=== PATIENT | female | born 2000 | race Two or more races ===

== ENCOUNTER 2024-04-23 12:42 | Emergency (ER) | payer MEDICAID ==
[~2024-04-23] VITALS: Ht 167.6 cm; Wt 100.2 kg
[2024-04-23 13:12] LABS: Urine Bacteria None Seen /hpf (None Seen)
[2024-04-23 13:51] LABS: Basophils # (auto) 0.1 10 ^3/uL (0-0.2); Basophils % (auto) 0.5 % (0.0-2.0); Eosinophils # (auto) 0.1 10 ^3/uL (0-0.8); Eosinophils % (auto) 0.5 % (0.0-7.0); Hematocrit 45.8 % (36.0-46.0); Hemoglobin 15.9 g/dL (12.2-16.2); Lymphocytes % (auto) 15.4 % (10.0-50.0); Mean Corpuscular Hemoglobin 30.7 pg (28.0-32.0); Mean Corpuscular Hgb Conc. 34.7 g/dL (32.0-36.0); Mean Corpuscular Volume 88.5 fL (80.0-100.0); Monocytes # (auto) 0.7 10 ^3/uL (0-1.3); Monocytes % (auto) 5.5 % (0.0-12.0); Neutrophils # (auto) 9.9 10 ^3/uL (1.6-8.6); Neutrophils % (auto) 78.1 % (37.0-80.0); Nucleated Red Blood Cells % 0.1 %; Platelet Count (auto) 323 10^3/uL (140-450); Red Blood Cells 5.18 10^6/uL (4.0-5.20); Red Cell Distribution Width 13.1 % (11.8-14.3); White Blood Cell 12.7 10^3/uL (4.4-10.8)
--- NOTE | 2024-04-23 13:56 | DVH ---
EXAM: US GALLBLADDER CLINICAL HISTORY: RO EDWAR TECHNIQUE: Grayscale and limited color flow doppler ultrasound of the right upper quadrant is perfor med. COMPARISON: None Findings: Liver measures 16.9 cm in length with increased echotexture and contour. No evidence of focal hepatic lesions or intra- or extrahepatic ductal dilatation. Common bile duct measures 0.6 cm in diameter. N ormal hepatopedal flow noted within the portal vein. No perihepatic free fluid is noted. Gallbladder appears within normal limits with gallbladder wall thickness measuring 0.3 cm. No evidenc e of shadowing calculi, biliary sludge or pericholecystic fluid. Negative sonographic Renee's sign. Pancreas only partially visualized due to overlying bowel gas but is otherwise unremarkable. Right kidney measures 11.3 cm with normal contours, echotexture and cortical thickness. No evidence o f hydronephrosis, calculi, cystic or solid renal lesions. Partially visualized inferior vena cava unremarkable. Impression: 1. No evidence of acute right upper quadrant abnormalities. 2. Hepatic steatosis with borderline hepatomegaly. 3. The common bile duct measures within the upper limits of normal for size.
[2024-04-23 14:15] LABS: Urine Blood Negative /uL (Negative); Urine Clarity Clear (Clear); Urine Color Light-Yellow (Yellow); Urine Protein, UAD Negative (Negative); Urine Specific Gravity 1.015 (1.001-1.035); Urine Squamous Epithelial Cell FEW /hpf (<5); Urine Urobilinogen Normal (Negative); Urine WBC 5 /HPF (0-5); Urine pH 7.5 (5.0-9.0)
[2024-04-23 14:18] LABS: Alkaline Phosphatase 59 U/L (46-116); Anion Gap 9 (5-15); BUN/Creatinine Ratio 9.6 (10.0-20.0); Calcium 10.3 mg/dL (8.7-10.4); Carbon Dioxide 28 mmol/L (20-31); Chloride 103 mmol/L (98-107); Potassium 3.8 mmol/L (3.5-5.1); Sodium 140 mmol/L (136-145); Total Protein 7.7 g/dL (5.7-8.2)
[2024-04-23 14:20] LABS: Alanine Aminotransferase 176 U/L (7-40); Albumin 5.1 g/dL (3.2-4.8); Aspartate Aminotransferase 89 U/L (13-40); Bilirubin, Total 1.5 mg/dL (0.2-1.0); Blood Urea Nitrogen 7 mg/dL (9-23); Glucose 107 mg/dL (74-106); Lipase 55 U/L (12-53)
[2024-04-23 14:27] VITALS: BP 119/74; TEMP 98.7
[2024-04-23] MEDS: SODIUM CHLORIDE 0.9% 1,000 ML IV ONE (14:31)
--- NOTE | 2024-04-23 14:50 | ED.PDOC ---
GI ASSESSMENT HPI Comments 23-year-old female with no reported PMHx presents with a chief complaint of abdominal pain, nausea, vomiting x 1 week. Patient states that her abdomen pain is localized to her epigastric region, nonradiating, describes as dull/ache feeling, and is present with nausea. Patient mentions that she has been feeling nausea and having episodes of vomiting after everything she eats for the past 1 week. Patient denies any blood in her emesis or any diarrhea. Patient denies injuries or trauma prior to onset of symptoms. No other symptoms or modifying factors present at this time. Chief Complaint: Nausea/Vomiting Time Seen by MD: 13:05 Primary Care Provider: TYRONE Luna Notes: Medications, Allergies Allergies: Coded Allergies: NO KNOWN ALLERGIES (Unverified , 04/23/24) Information Source: Patient Mode of Arrival: Ambulatory Timing: Days Duration: Since onset Prehospital treatment: None Quality: Aching Vomitus: Food Particles Stool: Normal Severity: Moderate Recent: None Recent Hx of: None Pain Location: Epigastric Modifying Factors: Food Associated sign and symptoms: Nausea, Vomiting, Abdominal Pain Past Medical History PAST MEDICAL HISTORY: Denies Surgical History: Denies all surgeries MUSEUM SERVICE SCHEDULER History: Denies all MUSEUM SERVICE SCHEDULER Hx Family History Family History: Reviewed,noncontributory to illness Social History Smoker: Non-Smoker Alcohol: Denies ETOH Use Drugs: Denies Drug Use Lives In: Home Constitutional: denies: chills, diaphoresis, fatigue, fever, malaise, sweats, weakness, others EENTM: denies: blurred vision, double vision, ear bleeding, ear discharge, ear drainage, ear pain, ear ringing, eye pain, eye redness, hearing loss, mouth pain, mouth swelling, nasal discharge, nose bleeding, nose congestion, nose pain, photophobia, tearing, throat pain, throat swelling, voice changes, others Respiratory: denies: cough, hemoptysis, orthopnea, SOB at rest, shortness of breath, SOB with excertion, stridor, wheezing, others Cardiovascular: denies: chest pain, dizzy spells, diaphoresis, Dyspnea on exertion, edema, irregular heart beat, left arm pain, lightheadedness, palpitations, PND, syncope, others Gastrointestinal: reports: abdominal pain, nausea, vomiting; denies: abdomen distended, blood streaked bowels, constipated, diarrhea, dysphagia, difficulty swallowing, hematemesis, melena, poor appetite, poor fluid intake, rectal bleedi ng, rectal pain, others Genitourinary: denies: abnormal vagina bleeding, burning, dyspareunia, dysuria, flank pain, frequency, hematuria, incontinence, pain, , vagina discharge, urgency, others Neurological: denies: dizziness, fainting, headache, left sided numbness, left sided weakness, numbness, paresthesia, pre-existing deficit, right sided numbness, right sided weakness, seizure, speech problems, tingling, tremors, weakness, others Musculoskeletal: denies: back pain, gout, joint pain, joint swelling, muscle pain, muscle stiffness, neck pain, others Integumetry: denies: bruises, change in color, change in hair/nails, dryness, laceration, lesions, lumps, rash, wounds, others Allergic/Immunocompromised: denies: Difficulty Healing, Frequent Infections, Hives, Itching, others Hematologic/Lymphatic: denies: anemia, blood clots, easy bleeding, easy bruising, swollen glands, others Endocrine: denies: excessive hunger, excessive sweating, excessive thirst, excessive urination, flushing, intolerance to cold, intolerance to heat, unexplained weight gain, unexplained weight loss, others Psychiatric: denies: anxiety, bipolar disorder, depression, hopeless, panic disorder, schizophrenia, sleepless, suicidal, others All Other Systems: Reviewed and Negative Physical Exam General Appearance: No Apparent Distress, Normal HEENT: Normal ENT Inspection, Pharynx Normal, TMs Normal Neck: Full Range of Motion, Non-Tender, Normal, Normal Inspection Respiratory: Chest Non-Tender, Lungs Clear, No Accessory Muscle Use, No Respiratory Distress, Normal Breath Sounds Cardiovascular: No Edema, No JVD, No Murmur, No Gallop, Normal Peripheral Pulses, Regular Rate/Rhythm Breast Exam: Deferred Gastrointestinal: Epigastric, No Organomegaly, No Pulsatile Mass, Normal Bowel Sounds, Soft, Tenderness Genitalia: Deferred Pelvic: Deferred Rectal: Deferred Extremities: No calf tenderness, Normal capillary refill, Normal inspection, Normal range of motion, Non-tender, No pedal edema Musculoskeletal : Apperance: Normal Neurologic: Alert, housekeeping laundry worker II-XII nml as Tested, No Motor Deficits, Normal Affect, Normal Mood, No Sensory Deficits Cerebellar Function: Normal Reflexes: Normal Skin: Dry, Normal Color, Warm Lymphatic: No Adenopathy Was a procedure done? Was a procedure done?: No GI differential Dx Differential Diagnosis: Bowel Obstruction, Cholangitis, Cholecystitis, Constipation, Diverticular disease, Gastritis/PUD, Gastroenteritis, Pancreatitis, UTI, Dehydration, Electrolyte Imbalance, Viral X-Ray, Labs, Meds, VS Vital Signs Date Time Temp Pulse Resp B/P (MAP) Pulse Ox O2 Delivery O2 Flow Rate FiO2 04/23/24 14:27 88 16 97 Room Air 04/23/24 14:27 98.7 88 16 119/74 (89) 97 98.7 04/23/24 13:02 99.1 100 16 122/77 (92) 96 Lab Test 04/23/24 13:40 04/23/24 13:00 Range/Units White Blood Count 12.7 H 4.4-10.8 10^3/uL Red Blood Count 5.18 4.0-5.20 10^6/uL Hemoglobin 15.9 12.2-16.2 g/dL Hematocrit 45.8 36.0-46.0 % Mean Corpuscular Volume 88.5 80.0-100.0 fL Mean Corpuscular Hemoglobin 30.7 28.0-32.0 pg Mean Corpuscular Hemoglobin Concent 34.7 32.0-36.0 g/dL Red Cell Distribution Width 13.1 11.8-14.3 % Platelet Count 323 140-450 10^3/uL Mean Platelet Volume 8.7 6.9-10.8 fL Neutrophils (%) (Auto) 78.1 37.0-80.0 % Lymphocytes (%) (Auto) 15.4 10.0-50.0 % Monocytes (%) (Auto) 5.5 0.0-12.0 % Eosinophils (%) (Auto) 0.5 0.0-7.0 % Basophils (%) (Auto) 0.5 0.0-2.0 % Neutrophils # (Auto) 9.9 H 1.6-8.6 10 ^3/uL Lymphocytes # (Auto) 2.0 0.4-5.4 10 ^3/uL Monocytes # (Auto) 0.7 0-1.3 10 ^3/uL Eosinophils # (Auto) 0.1 0-0.8 10 ^3/uL Basophils # (Auto) 0.1 0-0.2 10 ^3/uL Nucleated Red Blood Cells 0.1 % Sodium Level 140 136-145 mmol/L Potassium Level 3.8 3.5-5.1 mmol/L Chloride Level 103 98-107 mmol/L Carbon Dioxide Level 28 20-31 mmol/L Anion Gap 9 5-15 Blood Urea Nitrogen 7 L 9-23 mg/dL Creatinine 0.73 0.550-1.02 mg/dL Glomerular Filtration Rate Calc 120 >90 mL/min BUN/Creatinine Ratio 9.6 L 10.0-20.0 Serum Glucose 107 H 74-106 mg/dL Calcium Level 10.3 8.7-10.4 mg/dL Total Bilirubin 1.5 H 0.2-1.0 mg/dL Aspartate Amino Transferase (AST) 89 H 13-40 U/L Alanine Aminotransferase (ALT) 176 H 7-40 U/L Alkaline Phosphatase 59 46-116 U/L Total Protein 7.7 5.7-8.2 g/dL Albumin 5.1 H 3.2-4.8 g/dL Lipase 55 H 12-53 U/L Urine Color Light-yellow Yellow Urine Clarity Clear Clear Urine pH 7.5 5.0-9.0 Urine Specific Sterling 1.015 1.001-1.035 Urine Protein Negative Negative Urine Ketones Negative Negative Urine Blood Negative Negative /uL Urine Nitrite Negative Negative Urine Bilirubin Negative Negative Urine Urobilinogen Normal Negative mg/dL Urine Leukocyte Esterase 1+ Negative /uL Urine RBC 2 0 - 4 /hpf Urine Microscopic WBC 5 0-5 /HPF Urine Squamous Epithelial Cells Few <5 /hpf Urine Bacteria None seen None Seen /hpf Urine Glucose Normal Normal mg/dL Current Medications Medications (Trade) Dose Ordered Sig/Joe Route Start Time Stop Time Status Last Admin Sodium Chloride 1,000 ml @ 1,000 mls/hr Q1H ONCE IV 04/23/24 13:15 04/23/24 14:14 DC 04/23/24 14:31 PATIENT: RHYS JONESACCT: [id number]: [id number] : 2000 LOC: ER ROOM / BED: / AGE / SEX: 23 / F ADM STATUS: REG ER SERVICE 1308 ORDERING PHYSICIAN: ELVA JAUREGUI MD PROCEDURE(s): GBUS - GALLBLADDER REASON: RO EDWAR ORDER NUMBER(s): [id number], ACCESSION NUMBER(s): [id number] EXAM: US GALLBLADDER CLINICAL HISTORY: RO EDWAR TECHNIQUE: Grayscale and limited color flow doppler ultrasound of the right upper quadrant is performed. COMPARISON: None Findings: Liver measures 16.9 cm in length with increased echotexture and contour. No evidence of focal hepatic lesions or intra- or extrahepatic ductal dilatation. Common bile duct measures 0.6 cm in diameter. Normal hepatopedal flow noted within the portal vein. No perihepatic free fluid is noted. Gallbladder appears within normal limits with gallbladder wall thickness measuring 0.3 cm. No evidence of shadowing calculi, biliary sludge or pericholecystic fluid. Negative sonographic Renee's sign. Pancreas only partially visualized due to overlying bowel gas but is otherwise unremarkable. Right kidney measures 11.3 cm with normal contours, echotexture and cortical thickness. No evidence of hydronephrosis, calculi, cystic or solid renal lesions. Partially visualized inferior vena cava unremarkable. Impression: 1. No evidence of acute right upper quadrant abnormalities. 2. Hepatic steatosis with borderline hepatomegaly. 3. The common bile duct measures within the upper limits of normal for size. ATED BY: ZAHRA LLOYD DO DICTATED DATE/TIME: 04/23/241353 SIGNED BY: ZAHRA LLOYD DO SIGNED DATE/TIME: 04/23/24 1356 23-year-old female presents here with vomiting post meals. Denies any pain. On my evaluation she is currently not nauseous abdomen is soft nontender. Ultrasound has been done which demonstrates hepatic steatosis with borderline hepatomegaly. She is aware of the hepatic steatosis. No evidence of gallstones. Additionally blood work has been done which does demonstrate mild leukocytosis of 12.7. Also demonstrates transaminitis, with the elevated bilirubin of 1.5, and mild AST elevation in ALT elevation. I also mild pancreatitis 55. At this time although on the ultrasound it demonstrates common bile duct within the upper limits of normal there is still concern that there may be some abnormalities within the biliary system. I offered patient admission for additional testing. However patient stated she prefers to go home and try Zofran. I advised her to try a pancreatic diet which included starting with clear liquids and advancing diet slowly. I advised her to try this and I gave the patient great details. I also given prescription for Zofran. Advised her that if in a few days her symptoms do not improve completely she needs to return back to the ER and may require admission for her current symptoms. Patient agreeable. Her PCP is also advised her to follow up with her in the next 2-3 days. Advised patient if she changes her mind and wants to be admitted to return back to the ER. Time of 1ST Reevaluation: 13:35 Reevaluation 1ST: Unchanged Patient Education/Counseling: Diagnosis, Treatment, Prognosis Family Education/Counseling: Diagnosis, Treatment, Prognosis Departure 1 Departure Time of Disposition: 14:45 Impression: Primary Impression: Pancreatitis Qualified Codes: K85.11 - Biliary acute pancreatitis with uninfected necrosis Additional Impressions: Transaminitis Hepatic steatosis Disposition: 01 HOME / SELF CARE / HOMELESS Condition: Fair Additional Instructions: Follow up with the primary care physician in 2-3 days. Return to the ER if your nausea does not improve in a few days. Follow up pancreatic diet which includes clear liquids, then advanced to non clear liquids, and then advanced slowly to non fatty foods. If any point if the diet you take causes vomiting go back to the previous diet and advance only when you are able to tolerate it. If in a few days your symptoms do not improve please return back to the ER. PATIENT: RHYS JONES ACCT: [id number] UNIT: [id number] : 2000 LOC: ER ROOM / BED: / AGE / SEX: 23 / F ADM STATUS: REG ER SERVICE 1308 ORDERING PHYSICIAN: ELVA JAUREGUI MD PROCEDURE(s): GBUS - GALLBLADDER REASON: RO EDWAR ORDER NUMBER(s): [id number], ACCESSION NUMBER(s): [id number] EXAM: US GALLBLADDER CLINICAL HISTORY: RO EDWAR TECHNIQUE: Grayscale and limited color flow doppler ultrasound of the right upper quadrant is performed. COMPARISON: None Findings: Liver measures 16.9 cm in length with increased echotexture and contour. No evidence of focal hepatic lesions or intra- or extrahepatic ductal dilatation. Common bile duct measures 0.6 cm in diameter. Normal hepatopedal flow noted within the portal vein. No perihepatic free fluid is noted. Gallbladder appears within normal limits with gallbladder wall thickness measuring 0.3 cm. No evidence of shadowing calculi, biliary sludge or pericholecystic fluid. Negative sonographic Renee's sign. Pancreas only partially visualized due to overlying bowel gas but is otherwise unremarkable. Right kidney measures 11.3 cm with normal contours, echotexture and cortical thickness. No evidence of hydronephrosis, calculi, cystic or solid renal lesi ons. Partially visualized inferior vena cava unremarkable. Impression: 1. No evidence of acute right upper quadrant abnormalities. 2. Hepatic steatosis with borderline hepatomegaly. 3. The common bile duct measures within the upper limits of normal for size. ATED BY: ZAHRA LLOYD DO DICTATED DATE/TIME: 04/23/241353 SIGNED BY: ZAHRA LLOYD DO SIGNED DATE/TIME: 04/23/24 1354 e-Prescriptions Ondansetron Odt 4MG Tab (ZOFRAN PO) 4 Mg Tb 4 MG PO Q6HPRN PRN, #14 TAB ODT TAB-DISSOLVE IN MOUTH, THEN SWALLOW Prov: ELVA JAUREGUI MD 04/23/24 Discharged With: Self Critical Care Note Critical Care Time?: No Stability Stability form required: No I personally scribed for ELVA JAUREGUI MD ([email or web address]) on 04/23/24 at 14:50. Electronically submitted by Sky Mccabe ([email or web address]). I personally scribed for ELVA JAUREGUI MD ([email or web address]) on 04/23/24 at 14:51. Electronically submitted by Sky Mccabe ([email or web address]). I personally scribed for ELVA JAUREGUI MD ([email or web address]) on 04/23/24 at 15:05. Electronically submitted by Sky Mccabe ([email or web address]). I personally scribed for ELVA JAUREGUI MD ([email or web address]) on 04/23/24 at 15:33. Electronically submitted by Sky Mccabe ([email or web address]). ELVA JAUREGUI MD Apr 23, 2024 14:50
[2024-04-23] MEDS ORDERED: ZOFR4T PO (15:40)
[2024-04-23 15:57] VITALS: PULSE 80; RESP 14; O2SAT 96
== END 2024-04-23 15:59 | disposition home or self-care (01) ==
LOC: ER 12:42
DX: K85.11 Biliary acute pancreatitis with uninfected necrosis (principal); R74.01 Elevation of levels of liver transaminase levels; K76.0 Fatty (change of) liver, not elsewhere classified
CPT/HCPCS: 36415; 76705; 80053; 81001; 83690; 85025; 96360; 99284; J7030